=== PATIENT | female | born 2000 | race Caucasian/White ===

== ENCOUNTER 2025-03-24 17:57 | Emergency (ER) | payer SELFPAY ==
[~2025-03-24] VITALS: Ht 162.6 cm; Wt 77.0 kg
[2025-03-24 18:06] VITALS: O2SAT 96
[2025-03-24 18:30] LABS: BASOPHILS % 0.3 % (0.0-2.0); EOSINOPHILS % 0.1 % (0.0-5.0); HEMATOCRIT. 37.7 % (36.0-48.0); HEMOGLOBIN. 12.7 g/dL (12.0-16.0); LYMPHOCYTES % 9.3 % (20.0-50.0); MEAN PLATELET VOLUME 9.7 fl (7.4-10.4); MONOCYTES % 3.3 % (2.0-8.0); NEUTROPHILS % 87.0 % (40.0-76.0); PLATELET 317 x1000/uL (130-400); RED BLOOD CELL COUNT 3.90 mill/uL (4.2-5.4); RED CELL DISTRIBUTION WIDTH 14.0 % (11.6-14.6)
[2025-03-24 18:44] LABS: HCG SCREEN NEGATIVE
[2025-03-24 18:46] LABS: CREATININE 1.0 mg/dL (0.6-1.0)
[2025-03-24 18:47] LABS: UREA NITROGEN BLOOD 15 mg/dL (9-23)
[2025-03-24 19:09] LABS: ASPARTATE AMINOTRANSFERASE 22 IU/L (<34); BILIRUBIN DIRECT 0.2 mg/dL (<=3.0)
[2025-03-24 19:10] LABS: BILIRUBIN TOTAL 0.7 mg/dL (0.1-1.0); PROTEIN TOTAL 8.4 g/dL (6.0-8.3)
[2025-03-24 19:22] LABS: CLARITY URINE CLOUDY (CLEAR); COLOR URINE YELLOW (YELLOW); GLUCOSE URINE NEGATIVE (NEGATIVE); KETONES URINE 4+ (NEGATIVE); LEUKOCYTE ESTERASE URINE TRACE (NEGATIVE); NITRITE URINE NEGATIVE (NEGATIVE); OCCULT BLOOD URINE NEGATIVE (NEGATIVE); PH URINE 6.0 (4.5-8.0); PROTEIN URINE 1+ (NEGATIVE); SPECIFIC GRAVITY URINE 1.026 (1.005-1.030); UROBILINOGEN URINE 1.0 E.U./dL (0.2-1.0)
[2025-03-24 19:33] LABS: BACTERIA URINE 2+; RBC URINE 0-2 /hpf (0-2); SQUAMOUS EPITHELIAL CELL URINE 3+ /lpf (RARE/1+); WBC URINE 0-2 /hpf (0-2)
[2025-03-24] MEDS: VISCOUS LIDOCAINE 2% 15 ML UDC MM ONE (20:19)
[2025-03-24] MEDS: METOCLOPRAMIDE HCL 10MG/2ML VIAL IV ONE (20:19)
[2025-03-24] MEDS: SODIUM CHLORIDE 0.9% 1,000 ML IV ONE (20:19)
[2025-03-24] MEDS: MAGNESIUM/ALUMINUM HYDROXIDE/SIMETHICONE 30ML UDC PO ONE (20:19)
[2025-03-24] MEDS: FAMOTIDINE 20MG TABLET PO ONE (20:20)
[2025-03-24] MEDS: DIPHENHYDRAMINE 50MG/ML VIAL IV ONE (21:06)
[2025-03-24] MEDS: HALOPERIDOL LACTATE 5MG/ML VIAL IM ONE (21:07)
[2025-03-24] MEDS ORDERED: FAMO-135 MT (22:16)
[2025-03-24] MEDS ORDERED: ONDA-239 PO (22:16)
[2025-03-24 23:28] VITALS: BP 147/90; PULSE 75; RESP 14; TEMP 36.9; O2SAT 98
== END 2025-03-24 23:34 | disposition home or self-care (01) ==
LOC: ER 17:57 → CMPBEDREQ 03-26 10:21
DX: R10.84 Generalized abdominal pain (principal); R11.2 Nausea with vomiting, unspecified; R19.7 Diarrhea, unspecified
CPT/HCPCS: 80076; 80048; 81003; 81025; 84703; 83690; 85025; 36415; 74176; 96372; 96374; 96375; 99285; J1200; J1630; J2765; J7030; Z7610